=== PATIENT | female | born 1980 | race Caucasian/White ===

== ENCOUNTER 2018-09-12 14:19 | Emergency (ER) | payer OTHER ==
[~2018-09-12] VITALS: Ht 165.1 cm; Wt 72.0 kg
[2018-09-12 14:24] VITALS: BP 135/90
== END 2018-09-12 16:14 | disposition home or self-care (01) ==
LOC: ER 14:19
DX: E04.1 Nontoxic single thyroid nodule (principal); M54.2 Cervicalgia
CPT/HCPCS: 76881; 99284